=== PATIENT | male | born 1980 | race Caucasian/White ===

== ENCOUNTER 2017-02-27 11:46 | Emergency (ER) | payer OTHER ==
[~2017-02-27] VITALS: Ht 177.8 cm; Wt 108.9 kg
[~2017-02-27 11:46] MED LIST: CLEOCIN HCL300 MG PO; NORCO 5-325 TA1 EACH PO
[2017-02-27 11:54] VITALS: BP 125/80
[2017-02-27] MEDS ORDERED: PREDNISONE 20 M20 MG PO (12:19)
[2017-02-27] MEDS ORDERED: CYCLOBENZAPRINE5 MG PO (12:19)
[2017-02-27] MEDS ORDERED: NORCO 5-325 TA1 EACH PO (12:20)
== END 2017-02-27 12:40 | disposition home or self-care (01) ==
LOC: ER 11:46
DX: M54.5 Low back pain (principal); F17.210 Nicotine dependence, cigarettes, uncomplicated; F10.99 Alcohol use, unspecified with unspecified alcohol-induced disorder; F12.10 Cannabis abuse, uncomplicated; Z88.6 Allergy status to analgesic agent